=== PATIENT | male | born 1960 ===

== ENCOUNTER 2018-04-15 08:35 | Day surgery (SDC) | payer MEDICAID ==
[2018-04-14 13:10] VITALS: BMI 30.4
--- NOTE | 2018-04-15 08:55 | CP.SDSHP ---
Same Day Surgery H & P - History Proposed Procedure: colonoscopy - Previous Medical/Surgical History Pulmonary: Asthma Neuro: Backaches Previous Surgical History: L arm vacular reconstruction. Pneumothorax - Allergies Allergies: Allergies Penicillins Allergy (Severe, Verified 04/14/18 11:18) RASH - Date & Time Date: 04/15/18 Time: 08:54 Short Stay Discharge - Short Stay Discharge Admitting Diagnosis/Reason for Visit: SCREENING Disposition: HOME/ ROUTINE
[2018-04-15] MEDS ORDERED: Propofol 10 mg/ml Inj (20 ML) ONE ×4 (09:41→10:45)
[2018-04-15] MEDS ORDERED: Lactated Ringer's 500 ML IV ONE ×2 (09:55→10:40)
[2018-04-15] MEDS ORDERED: Midazolam 2 MG/2 ML VIAL ONE (10:44)
[2018-04-15 11:06] VITALS: TEMP 97; O2SAT 100
[2018-04-15 11:16] VITALS: RESP 12
[2018-04-15 12:41] VITALS: BP 113/77; PULSE 60
== END 2018-04-15 11:55 | disposition home or self-care (01) ==
LOC: C.ENDO 08:35
PROVIDERS: ATTEND Colon & Rectal Surgery
DX: Z12.11 Encounter for screening for malignant neoplasm of colon (principal); D12.4 Benign neoplasm of descending colon; D12.5 Benign neoplasm of sigmoid colon; D12.3 Benign neoplasm of transverse colon; K64.8 Other hemorrhoids
CPT/HCPCS: 45380; 45385; 88305; J2001; J2250; J2704; J7120